=== PATIENT | female | born 1980 | race Caucasian/White ===

== ENCOUNTER 2017-09-04 13:19 | Emergency (ER) | payer MEDICAID ==
[~2017-09-04] VITALS: Ht 165.1 cm; Wt 105.7 kg
[2017-09-04 13:25] VITALS: BP 146/99
--- NOTE | 2017-09-04 13:33 | NUR ---
PT AMBULATES TO BED 11 WITH STEADY GAIT
--- NOTE | 2017-09-04 13:54 | NUR ---
PATIENT PRESENTS TO ED WITH COMPLAINTS OF NECK PAIN X 2 DAYS. PATIENT STATES IT JUST STARTED SUDDENLY. PATIENT REPORTS HX OF DIABETES AND DENIES RX. DENIES N/V/D; SKIN IS PINK/WARM/DRY; AAOX4 WITH EVEN AND STEADY GAIT; LUNGS CLEAR BL; HR EVEN AND REGULAR; PT DENIES ANY FEVER, CP, SOB, OR COUGH AT THIS TIME; PATIENT STATES PAIN OF 8/10 AT THIS TIME; VSS; PATIENT POSITIONED FOR COMFORT; HOB ELEVATED; BEDRAILS UP X1; BED DOWN. ER MD MADE AWARE OF PT STATUS.
--- NOTE | 2017-09-04 14:40 | NUR ---
PT ON STRETCHER IN NO ACUTE DISTRESS, NO IDENTIFIED REQUESTS AT THIS TIME.
[2017-09-04] MEDS ORDERED: KETOROLAC 30 MG/ML VIAL IM ONE (15:10)
[2017-09-04] MEDS ORDERED: ACETAMINOPHEN EXTRA STRENGTH 500 MG TAB PO ONE (15:10)
[2017-09-04 15:45] LABS: APPEARANCE,URINE CLOUDY (CLEAR); BILIRUBIN,URINE 1+ (NEGATIVE); BLOOD, URINE NEGATIVE (NEGATIVE); COLOR,URINE YELLOW (YELLOW); LEUKOCYTE ESTERASE ,URINE NEGATIVE (NEGATIVE); NITRITE, URINE NEGATIVE (NEGATIVE); PH,URINE 5.5 (5.0-9.0); UGLUCOSE TRACE (NEGATIVE)
[2017-09-04 16:01] LABS: RBC,URINE 0-5 (RARE) /HPF (0-5)
--- NOTE | 2017-09-04 16:26 | NUR ---
AWAITING DR. TOMLINSON'S D/C INSTRUCTIONS
[2017-09-04 16:35] VITALS: BP 140/98
== END 2017-09-04 16:35 | disposition home or self-care (01) ==
LOC: MED 13:19
DX: G44.209 Tension-type headache, unspecified, not intractable (principal); E11.9 Type 2 diabetes mellitus without complications
CPT/HCPCS: 81001; 82948; 87086; 96372; 99284; J1885